=== PATIENT | male | born 1995 | race Caucasian/White ===

== ENCOUNTER 2024-04-30 16:00 | Emergency (ER) | payer BC, SELFPAY ==
[2024-04-30 16:05] VITALS: BP 149/75; PULSE 50; TEMP 36.9; O2SAT 98; BMI 25.8
--- NOTE | 2024-04-30 16:24 | ED.ABDPAIN1 ---
HPI - Abdominal Pain General Chief Complaint: Abdominal Pain Stated Complaint: Abdominal Pain Time Seen by Provider: 04/30/24 16:02 Source: patient Mode of arrival: walk-in Limitations: no limitations History of Present Illness HPI narrative: 28-year-old male to the emergency department with chief complaint of right flank pain. Started suddenly today. Also accompanied by hematuria. He denies any nausea, vomiting, fever, sweats, chills. No history of kidney stones. Related Data Previous Rx's ?Medication ?Instructions ?Recorded cephalexin 500 mg capsule 500 mg PO BID 5 days #10 caps 04/30/24 ibuprofen 800 mg tablet 800 mg PO Q8H PRN pain #20 tabs 04/30/24 ondansetron 4 mg disintegrating 4 mg PO Q8H PRN nausea and 04/30/24 tablet vomiting 4 days #16 tabs oxycodone-acetaminophen 5 mg-325 1 tab PO Q6H PRN pain 3 days #12 04/30/24 mg tablet (Percocet) tabs tamsulosin 0.4 mg capsule (Flomax) 0.4 mg PO DAILY #14 caps 04/30/24 Allergies Allergy/AdvReac Type Severity Reaction Status Date / Time No Known Drug Allergies Allergy Verified 04/30/24 16:04 Review of Systems ROS Status of ROS 10 or more systems reviewed and unremarkable except as noted in history and below Exam Narrative Exam Narrative: VITALS: I have reviewed the triage vital signs. GENERAL: Uncomfortable appearing adult male holding right flank. NEURO: Alert and oriented. Moves all extremities. Face is symmetric and expressive. EYES: PERRL. No scleral icterus or conjunctival injection. No discharge. HENT: Normocephalic, atraumatic. Hearing is grossly intact. Nares grossly patent and without discharge. Mucous membranes moist. NECK: No JVD. Patient moves neck without restriction. CARDIO: Rhythm regular. Normal rate. No murmur, rub, or gallop. Pulses equal bilaterally in the upper and lower extremity. No lower extremity edema. PULM: Lungs clear to auscultation in all brown. No wheezes, rales, or rhonchi. No conversational dyspnea. No splinting, stridor, or accessory muscle use. GI/: Abdomen is soft and non-tender. Normoactive bowel sounds. EXTREMITIES: Symmetric muscle bulk. No joint swelling. No clubbing, cyanosis, or deformity. SKIN: Warm and dry. Normal turgor. No rash or lesions appreciated. PSYCH: Mood, affect, and interaction is appropriate to the setting. Constitutional Vital Signs, click to edit/add: Last Vital Signs Temp 98.4 F 04/30/24 16:05 Pulse 62 04/30/24 17:59 Resp 16 04/30/24 17:59 BP 124/82 04/30/24 17:59 Pulse Ox 99 04/30/24 17:59 O2 Del Method Room Air 04/30/24 16:05 Course Vital Signs Vital signs: Vital Signs Temperature 98.4 F 04/30/24 16:05 Pulse Rate 50 L 04/30/24 16:05 Respiratory Rate 16 04/30/24 16:05 Blood Pressure 149/75 H 04/30/24 16:05 Pulse Oximetry 98 04/30/24 16:05 Oxygen Delivery Method Room Air 04/30/24 16:05 Temperature 98.4 F 04/30/24 16:05 Pulse Rate 62 04/30/24 17:59 Respiratory Rate 16 04/30/24 17:59 Blood Pressure 124/82 04/30/24 17:59 Pulse Oximetry 99 04/30/24 17:59 Oxygen Delivery Method Room Air 04/30/24 16:05 MDM - Abdominal Pain MDM Narrative Medical decision making narrative: Uncomfortable appearing 28-year-old male holding his right flank. Vital stable, the patient is afebrile. Patient cites a traumatic experience getting an IV as a child and does not want any needles or catheters involved in his care today. He does not want any labs. CT scan and urinalysis to be performed. Zofran and ibuprofen for symptoms. Patient agrees with this plan. Urinalysis with some bacteria. Symptoms improved. CT scan does show a 3 mm distal stone. Plan discussed with patient. He is appropriate for outpatient treatment. Urine strainer. Follow-up with urology. Symptomatic medications. Return precautions were discussed. All questions were answered. The patient was discharged home. Medical Records Attestation: I reviewed the patient's medical records. Lab Data Attestation: I reviewed the patient's lab results. Labs: Lab Results 04/30/24 Range/Units 16:15 Urine Color Dk orange A (YELLOW) Urine Clarity Slightly cloudy A (CLEAR) Urine pH Color interference A (5.0-9.0) Ur Specific [place] Color interference A (1.005-1.025) Urine Protein Color interference A (NEG/TRACE) mg/dL Urine Glucose (UA) Color interference A (NEGATIVE) mg/dL Urine Ketones Color interference A (NEGATIVE) mg/dL Urine Occult Blood Color interference A (NEGATIVE) Urine Nitrite Color interference A (NEGATIVE) Urine Bilirubin Color interference A (NEGATIVE) Urine Urobilinogen Color interference A (0.2-1.0) EU/dL Ur Leukocyte Esterase Color interference A (NEGATIVE) Urine RBC 0-2 (0-2) #/HPF Urine WBC 2-5 A (NONE SEEN) #/HPF Ur Squamous Epith Cells Rare (NONE/RARE) #/LPF Urine Crystals Seen A (None Seen) #/HPF Calcium Oxalate Crystal Rare Urine Bacteria Moderate A (NONE SEEN) #/HPF Urine Casts Seen A (NONE SEEN) #/LPF Hyaline Casts Rare Urine Mucus Moderate A (NONE SEEN) Ur Culture Indicated? Yes Imaging Data CT scan - abdomen: Radiologist's impression: ITS Impressions Abdomen/Pelvis CT 04/30/24 16:29 IMPRESSION: Obstructing 3 mm right UVJ stone resulting in mild hydronephrosis. Electronically authenticated by: CHERYL MURPHY Date: 04/30/2024 17:16 Discharge Plan Discharge Stand Alone Forms: Portal Instructions Chief Complaint: Abdominal Pain Clinical Impression: Kidney stone on right side Patient Disposition: Home, Self-Care Time of Disposition Decision: 17:47 Condition: Good Mode of Transportation: Private Vehicle Prescriptions / Home Meds: New cephalexin 500 mg capsule 500 mg PO BID 5 Days Qty: 10 0RF oxycodone-acetaminophen [Percocet] 5-325 mg tablet 1 tab PO Q6H PRN (Reason: pain) 3 Days Qty: 12 0RF tamsulosin [Flomax] 0.4 mg capsule 0.4 mg PO DAILY Qty: 14 0RF ibuprofen 800 mg tablet 800 mg PO Q8H PRN (Reason: pain) Qty: 20 0RF ondansetron 4 mg tablet,disintegrating 4 mg PO Q8H PRN (Reason: nausea and vomiting) 4 Days Qty: 16 0RF Print Language: Armenian Instructions: Kidney Stones (ED), How to Strain Your Urine (ED) Additional Instructions: Call the office of your primary care doctor to arrange for follow-up within the above-stated timeframe. Your ED visit was focused on your acute issue and does not replace primary care. You should review your labs, imaging, and diagnoses from this ED visit with your primary care physician. There may be non-emergent/ incidental findings that need further evaluation. You should review your vital signs including blood pressure with your PCP. If you were prescribed medications you should discuss possible side-effects and drug interactions with your pharmacist. Call 911 or go to the nearest Emergency Department if you develop any new or worsening symptoms. Seek immediate medical attention if you develop: worsening abdominal pain, new or worsening nausea, new or worsening vomiting, new or worsening diarrhea, chest pain, shortness of breath, pain with urination, problems urinating, fever, chills, weakness, or any new or worsening symptoms. Referrals: Charlee Hassan MD [Physician] - 1 week Physician,Non-Staff, [Primary Care Provider] - 1 week Discharge Date/Time: 04/30/24 18:00
[2024-04-30] MEDS: IBUPROFEN 400 MG TABLET 800 MG PO (16:25)
[2024-04-30] MEDS: ONDANSETRON 4 MG RAPDIS TABLET SL (16:25)
--- NOTE | 2024-04-30 16:29 | CT_ITS ---
The [address] [address] Patient Name: PJ MELENDEZ MRN: [id number] date: 1995 Sex: M Assigned Patient Location: ER Current Patient Location: ER Accession/Order Number: [id number] Exam Date: 04/30/2024 16:25 Report Date: 04/30/2024 17:16 At the request of: LIN AMTHUR Procedure: CT abdomen pelvis wo con CT ABDOMEN/PELVIS WITHOUT IV CONTRAST. INDICATION: right flank pain COMPARISON: There are no other studies available for comparison. TECHNIQUE: Contiguous axial images were obtained from the lung bases to the pelvic floor without intravenous or oral contrast. Coronal and sagittal reformations are provided. FINDINGS: LOWER LUNGS: Clear. LIVER/BILIARY TREE: No discrete lesion. No intrahepatic ductal dilatation. GALLBLADDER: No significant gallbladder wall thickening. No radiopaque stone. CBD: Normal CBD. SPLEEN: Normal in size. PANCREAS: No appreciable peripancreatic fluid. No pancreatic ductal dilatation. No discrete lesion. ADRENALS: Normal. KIDNEYS: There is an obstructing 3 mm right UVJ stone resulting in mild hydronephrosis.. STOMACH AND BOWEL: Stomach is unremarkable. No dilated bowel loops. No bowel wall thickening. APPENDIX: Normal appendix. PERITONEAL CAVITY: No fluid. No fat stranding. ABDOMINAL WALL: No subcutaneous stranding. No subcutaneous fluid collection. LYMPH NODES: No mesenteric or retroperitoneal lymphadenopathy by CT criteria. ABDOMINAL AORTA: No aneurysm. PELVIS: Right UVJ 3 mm stone as described above. MUSCULOSKELETAL: No acute osseous abnormality. CT/CT abdomen pelvis wo con IMPRESSION: Obstructing 3 mm right UVJ stone resulting in mild hydronephrosis. Electronically authenticated by: CHERYL MURPHY Date: 04/30/2024 17:16
[2024-04-30 16:55] LABS: Bilirubin Urine COLOR INTERFERENCE (NEGATIVE); Blood Urine COLOR INTERFERENCE (NEGATIVE); Clarity Urine SLIGHTLY CLOUDY (CLEAR); Color Urine DK ORANGE (YELLOW); Glucose Urine UA COLOR INTERFERENCE mg/dL (NEGATIVE); Ketones Urine COLOR INTERFERENCE mg/dL (NEGATIVE); Leukocyte Esterase Urine COLOR INTERFERENCE (NEGATIVE); Nitrite Urine COLOR INTERFERENCE (NEGATIVE); Protein Urine COLOR INTERFERENCE mg/dL (NEG/TRACE); Specific Gravity Urine COLOR INTERFERENCE (1.005-1.025); Urobilinogen Urine COLOR INTERFERENCE EU/dL (0.2-1.0); pH Urine COLOR INTERFERENCE (5.0-9.0)
[2024-04-30 16:58] LABS: Bacteria Urine MODERATE #/HPF (NONE SEEN); Mucus Urine MODERATE (NONE SEEN); RBC Urine 0-2 #/HPF (0-2)
[2024-04-30 16:59] LABS: Calcium Oxalate Crystals Urine RARE; Cast Seen? SEEN #/LPF (NONE SEEN); Crystals Seen? Seen #/HPF (None Seen); Hyaline Casts Urine RARE; Squamous Epithelial Cell Urine RARE #/LPF (NONE/RARE); Urine Culture Indicated YES
[2024-04-30 17:59] VITALS: BP 124/82; PULSE 62; O2SAT 99
== END 2024-04-30 18:00 | disposition home or self-care (01) ==
PROVIDERS: Emergency Provider Student in an Organized Health Care Education/Training Program
DX: N13.2 Hydronephrosis with renal and ureteral calculous obstruction (principal)
CPT/HCPCS: 74176; 81001; 87086; 99284; Q0162